=== PATIENT | female | born 1980 | race African-American/Black ===

== ENCOUNTER 2021-06-02 15:19 | Emergency (ER) | payer OTHER ==
[~2021-06-02] VITALS: Ht 160 cm; Wt 77.1 kg
== END 2021-06-02 21:07 | disposition home or self-care (01) ==
LOC: ER 15:19
DX: O26.891 Other specified pregnancy related conditions, first trimester (principal); Z3A.12 12 weeks gestation of pregnancy; N93.8 Other specified abnormal uterine and vaginal bleeding; Z88.6 Allergy status to analgesic agent

== ENCOUNTER 2021-06-04 20:52 | Emergency (ER) | payer OTHER ==
[~2021-06-04] VITALS: Ht 160 cm; Wt 77.1 kg
[2021-06-05] MEDS ORDERED: DOLOGESIC 500-1 EACH PO (03:42)
== END 2021-06-05 03:49 ==
LOC: ER 20:52
DX: O03.9 Complete or unspecified spontaneous abortion without complication (principal); Z88.6 Allergy status to analgesic agent